=== PATIENT | male | born 1980 | race Caucasian/White ===

== ENCOUNTER 2018-04-12 18:03 | Inpatient (IN) | payer OTHER, MEDICAID ==
[~2018-04-12] VITALS: Ht 160 cm; Wt 80.5 kg
[2018-04-12] VITALS (9 sets, daily range): BP systolic 132; BP diastolic 88; PULSE 112–119; RESP 18; TEMP 99.3; O2SAT 94–100
[2018-04-12] MEDS ORDERED: DIPHTH/TETANUS/ACEL PERTUSSIS (BOOSTER) 0.5 ML VIAL/PFS IM ONE ×2 (18:11→18:22)
[2018-04-12] MEDS ORDERED: ceFAZolin 2 GM PREMIX 50 ML ONE (18:11)
[2018-04-12] MEDS ORDERED: PROPOFOL 1000 MG/100 ML INJ 100 ML ONE (18:12)
[2018-04-12 18:29] LABS: BASOPHIL # 0.1 TH/MM3 (0-0.2); BASOPHIL % 0.7 % (0.0-2.0); EOSINOPHIL % 0.3 % (0.0-4.0); HEMATOCRIT 46.2 % (39.0-51.0); HEMOGLOBIN 15.9 GM/DL (13.0-17.0); LYMPH % 38.2 % (9.0-44.0); LYMPHOCYTE # 4.3 TH/MM3 (1.0-4.8); MEAN CELL VOLUME 91.6 FL (80.0-100.0); MEAN CORPUSCULAR HEMOGLOBIN 31.5 PG (27.0-34.0); MEAN CORPUSCULAR HGB CONC 34.4 % (32.0-36.0); MEAN PLATELET VOLUME 7.5 FL (7.0-11.0); MONO % 6.7 % (0.0-8.0); MONOCYTE # 0.8 TH/MM3 (0-0.9); NEUT % 54.1 % (16.0-70.0); PLATELET COUNT 357 TH/MM3 (150-450); RED BLOOD COUNT 5.05 MIL/MM3 (4.50-5.90); RED CELL DISTRIBUTION WIDTH 12.9 % (11.6-17.2); WHITE BLOOD COUNT 11.2 TH/MM3 (4.0-11.0)
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
[2018-04-12 18:37] LABS: INTERNATIONAL NORMALIZED RATIO 1.1 RATIO; PROTHROMBIN TIME - PATIENT 11.1 SEC (9.8-11.6)
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
[2018-04-12] MEDS ORDERED: IOHEXOL 350 MG/ML 10 ML VIAL (for RAD DIAG) IVCONTRAST ONE (18:42)
[2018-04-12] MEDS ORDERED: ROCURONIUM INJ 50 MG/5 ML VIAL ONE (18:43)
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
[2018-04-12] MEDS ORDERED: SENNOSIDES 8.6 MG TAB PO PRN (19:15)
[2018-04-12] MEDS ORDERED: CHLORHEXIDINE GLUCONATE 2 % 1 PACK (2 CLOTHS) TOP PRN (19:15)
[2018-04-12] MEDS ORDERED: ACETAMINOPHEN 325 MG TAB PO PRN (19:15)
[2018-04-12] MEDS ORDERED: NURSING INFORMATION XX SCH (19:15)
[2018-04-12] MEDS ORDERED: LACTULOSE SYRUP 20 GM/30 ML CUP PO PRN (19:15)
[2018-04-12] MEDS ORDERED: BISACODYL 10 MG SUPP RECTAL PRN (19:15)
[2018-04-12] MEDS ORDERED: MAGNESIUM HYDROXIDE SUSP 30 ML CUP PO PRN (19:15)
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
[2018-04-12] MEDS: SODIUM CHLOR 0.9% 1000 ML INJ 1,000 ML IV SCH ×2 (19:39→20:52)
[2018-04-12] MEDS: PROPOFOL 1000 MG/100 ML INJ 100 ML IV PRN (20:00)
[2018-04-12] MEDS: NURSING INFORMATION SCH ×6 (20:03→21:20)
--- NOTE | 2018-04-12 20:28 | PD.OP ---
Operative Report open wound nose 1.5 cm stellate type,open wound forehead 4 cm Postoperative Diagnosis: open wound nose 1.5 cm stellate type,open wound forehead 4 cm Procedure: simple closure Surgeon: Eva Vu Dining Room Attendant Cafeteria(s): none Operation and Findings: Patient's forehead ,nose was sterilely prepped and draped.Irrigation was performed with NS.Using 3-0 nylon both wound were approximated with interrupted technique. Eva Vu MD April 12, 2018 20:28
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
[2018-04-12] MEDS: DOCUSATE SODIUM 50 MG/SENNA 8.6 MG TAB PO SCH (21:00)
[2018-04-12] MEDS ORDERED: fentaNYL 2,500 MCG/NS 250 ML IV PRN (21:00)
[2018-04-12] MEDS ORDERED: SODIUM CHLOR 0.9% 1000 ML INJ 1,000 ML IV ONE ×2 (21:00→23:30)
[2018-04-12] MEDS: FAMOTIDINE 20 MG/2 ML VIAL IV PUSH SCH (21:09)
[2018-04-12] MEDS: ceFAZolin 1,000 MG/NS 100 ML IV SCH ×2 (21:09)
[2018-04-12] MEDS ORDERED: MAGNESIUM SULFATE INJ 4 GM in SODIUM CHLORIDE 0.9% INJ 92 ML IV PRN (21:30)
[2018-04-12] MEDS ORDERED: POTASSIUM CHLORIDE 25 MEQ EFFERVESCENT TAB PO PRN ×2 (21:30)
[2018-04-12] MEDS ORDERED: DEXTROSE 50% IN WATER 50 ML SYRINGE IV PUSH PRN (21:30)
[2018-04-12] MEDS ORDERED: POTASSIUM PHOSPHATE MONOBASIC 500 MG TAB PO PRN (21:30)
[2018-04-12] MEDS ORDERED: RESP: ALBUTEROL 2.5 MG/IPRATROPIUM 0.5 MG NEB (PRN) NEB (21:30)
[2018-04-12] MEDS ORDERED: MAGNESIUM SULFATE INJ 2 GM in SODIUM CHLORIDE 0.9% INJ 96 ML IV PRN (21:30)
[2018-04-12] MEDS ORDERED: POTASSIUM CHLOR 20 MEQ PREMIX 100 ML IV PRN ×2 (21:30)
[2018-04-12] MEDS ORDERED: MAGNESIUM OXIDE 400 MG TAB PO PRN (21:30)
[2018-04-12] MEDS ORDERED: POTASSIUM PHOSPHATE MONOBASIC 500 MG TAB PO/TUBE PRN (21:30)
[2018-04-12] MEDS ORDERED: SODIUM PHOSPHATE INJ 30 MMOL in SODIUM CHLOR 0.9% 250 ML INJ 240 ML IV PRN (21:30)
[2018-04-12] MEDS ORDERED: GLUCAGON 1 MG/ML VIAL OTHER PRN (21:30)
[2018-04-12] MEDS ORDERED: POTASSIUM PHOSPHATE INJ 30 MMOL in SODIUM CHLOR 0.9% 250 ML INJ 250 ML IV PRN (21:30)
[2018-04-12] MEDS ORDERED: POTASSIUM CHLOR 40 MEQ PREMIX 100 ML IV PRN ×2 (21:30)
[2018-04-12] MEDS: RESP: ALBUTEROL 2.5 MG/IPRATROPIUM 0.5 MG NEB (SCH) NEB (21:59)
[2018-04-12] MEDS: levETIRAcetam INJ 500 MG in SODIUM CHLORIDE 0.9% INJ 100 ML IV SCH (22:22)
[2018-04-12] MEDS: MULTIVITAMIN INJ 10 ML, THIAMINE INJ 100 MG, FOLIC ACID INJ 1 MG in SODIUM CHLORID 0.9%... IV SCH (23:40)
[2018-04-13] VITALS (19 sets, daily range): BP systolic 121–168; BP diastolic 78–93; PULSE 100–122; RESP 11–26; TEMP 100–101.3; O2SAT 96–100
[2018-04-13] MEDS: CHLORHEXIDINE GLUCONATE 2 % 1 PACK (2 CLOTHS) TOP SCH (03:09)
[2018-04-13 03:31] LABS: AUTOMATED NEUTROPHIL # 8.9 TH/MM3 (1.8-7.7); BASOPHIL % 0.3 % (0.0-2.0); EOSINOPHIL % 0.1 % (0.0-4.0); HEMATOCRIT 41.5 % (39.0-51.0); HEMOGLOBIN 14.1 GM/DL (13.0-17.0); LYMPH % 13.5 % (9.0-44.0); LYMPHOCYTE # 1.5 TH/MM3 (1.0-4.8); MEAN CELL VOLUME 91.8 FL (80.0-100.0); MEAN CORPUSCULAR HEMOGLOBIN 31.3 PG (27.0-34.0); MEAN PLATELET VOLUME 7.8 FL (7.0-11.0); MONO % 5.9 % (0.0-8.0); MONOCYTE # 0.7 TH/MM3 (0-0.9); NEUT % 80.2 % (16.0-70.0); PLATELET COUNT 251 TH/MM3 (150-450); RED BLOOD COUNT 4.52 MIL/MM3 (4.50-5.90); RED CELL DISTRIBUTION WIDTH 13.1 % (11.6-17.2); WHITE BLOOD COUNT 11.1 TH/MM3 (4.0-11.0)
[2018-04-13] MEDS: RESP: ALBUTEROL 2.5 MG/IPRATROPIUM 0.5 MG NEB (SCH) NEB ×4 (03:33→19:35)
[2018-04-13 04:07] LABS: BICARBONATE 19.6 MEQ/L (21.0-32.0); CALCIUM 6.9 MG/DL (8.5-10.1); CREATININE 0.72 MG/DL (0.60-1.30); PHOSPHORUS 2.3 MG/DL (2.5-4.9)
--- NOTE | 2018-04-13 04:18 | RADRPT ---
EXAM DATE: 04/13/2018 4:13 AM EDT AGE/SEX: 89 years / Male INDICATIONS: Respiratory distress. CLINICAL DATA: This is the patient's subsequent encounter. Patient reports that signs and symptoms h ave been present for 2 days and indicates a pain score of Nonresponsive. MEDICAL/SURGICAL HISTORY: Non-responsive. Non-responsive. COMPARISON: No prior exams available for comparison. FINDINGS: Slight bilateral lung base atelectasis and/or infiltrate is seen. NG tube is present with tip in the stomach. ET tube is present with tip overlapping approximately 2 above the faith. No definite pneum othorax is seen for technique. CONCLUSION: Slight bilateral lung base atelectasis and/or infiltrate is seen. Electronically signed by: Honey Claudio MD 04/13/2018 4:16 AM EDT
[2018-04-13] MEDS: PROPOFOL 1000 MG/100 ML INJ 100 ML IV PRN (04:30)
[2018-04-13 04:46] LABS: TOTAL PROTEIN 6.4 GM/DL (6.4-8.2)
[2018-04-13 04:49] LABS: CALCIUM-PROTEIN CORRECTED 7.3 MG/DL (8.5-10.1)
[2018-04-13] MEDS: ceFAZolin 1,000 MG/NS 100 ML IV SCH ×6 (05:00→21:36)
[2018-04-13] MEDS: SODIUM CHLOR 0.9% 1000 ML INJ 1,000 ML IV SCH ×2 (05:00→05:01)
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
[2018-04-13] MEDS ORDERED: SODIUM CHLOR 0.9% 1000 ML INJ 1,000 ML IV ONE (05:15)
[2018-04-13] MEDS: INSULIN ASPART SUPPLEMENTAL SCALE SQ SCH ×4 (05:54→18:32)
[2018-04-13] MEDS: FAMOTIDINE 20 MG/2 ML VIAL IV PUSH SCH ×2 (08:36→21:37)
[2018-04-13] MEDS: levETIRAcetam INJ 500 MG in SODIUM CHLORIDE 0.9% INJ 100 ML IV SCH ×2 (08:36→21:37)
[2018-04-13] MEDS: DOCUSATE SODIUM 50 MG/SENNA 8.6 MG TAB PO SCH ×2 (08:36→21:36)
[2018-04-13] MEDS: BACITRACIN TOP OINT 15 GM TUBE TOPICAL SCH ×2 (08:36→21:37)
[2018-04-13] MEDS: CHLORHEXIDINE 0.12% (ORAL KIT) 15 ML CUP MT SCH ×2 (08:36→20:14)
[2018-04-13] MEDS ORDERED: oxyCODONE/ACETAMINOPHEN 5 MG/325 MG TAB PO PRN (10:15)
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
[2018-04-13] MEDS: MORPHINE SULFATE 4 MG/ML INJ IV PUSH PRN ×2 (16:15→22:44)
[2018-04-13] MEDS: MULTIVITAMIN INJ 10 ML, THIAMINE INJ 100 MG, FOLIC ACID INJ 1 MG in SODIUM CHLORID 0.9%... IV SCH (22:24)
[2018-04-14] VITALS (12 sets, daily range): BP systolic 141–172; BP diastolic 78–100; PULSE 94–111; RESP 20–24; TEMP 97.4–99; O2SAT 95–99
[2018-04-14] MEDS: oxyCODONE/ACETAMINOPHEN 10 MG/325 MG TAB PO PRN ×2 (02:28→20:42)
[2018-04-14 04:28] LABS: HEMOGLOBIN 13.3 GM/DL (13.0-17.0); MEAN CORPUSCULAR HEMOGLOBIN 32.3 PG (27.0-34.0); MEAN CORPUSCULAR HGB CONC 35.9 % (32.0-36.0); MEAN PLATELET VOLUME 7.8 FL (7.0-11.0); PLATELET COUNT 240 TH/MM3 (150-450); RED BLOOD COUNT 4.11 MIL/MM3 (4.50-5.90); RED CELL DISTRIBUTION WIDTH 12.5 % (11.6-17.2)
[2018-04-14] MEDS: RESP: ALBUTEROL 2.5 MG/IPRATROPIUM 0.5 MG NEB (SCH) NEB ×4 (04:41→21:02)
[2018-04-14 04:53] LABS: ALBUMIN 2.8 GM/DL (3.4-5.0); ALKALINE PHOSPHATASE 57 U/L (45-117); ALT (GPT) 43 U/L (12-78); AST (GOT) 67 U/L (15-37); BICARBONATE 22.1 MEQ/L (21.0-32.0); BLOOD UREA NITROGEN 5 MG/DL (7-18); CALCIUM 8.1 MG/DL (8.5-10.1); CHLORIDE 104 MEQ/L (98-107); CREATININE 0.57 MG/DL (0.60-1.30); GLOMERULAR FILTRATION RATE 160 ML/MIN (>89); GLUCOSE,RANDOM 120 MG/DL (74-106); SODIUM (NA) 137 MEQ/L (136-145); TOTAL BILIRUBIN ADULT 1.1 MG/DL (0.2-1.0); TOTAL PROTEIN 6.2 GM/DL (6.4-8.2)
[2018-04-14 05:08] LABS: LYMPHOCYTES 11 % (9-44); MONOCYTES 8 % (0-8); NEUTROPHIL # MANUAL DIFF 8.1 TH/MM3 (1.8-7.7); POLYS (SEG NEUTROPHILS) 81 % (16-70)
[2018-04-14] MEDS: ceFAZolin 1,000 MG/NS 100 ML IV SCH ×4 (05:16→12:43)
[2018-04-14] MEDS: CHLORHEXIDINE GLUCONATE 2 % 1 PACK (2 CLOTHS) TOP SCH (05:17)
[2018-04-14] MEDS: INSULIN ASPART SUPPLEMENTAL SCALE SQ SCH ×2 (06:00→12:43)
[2018-04-14] MEDS: MORPHINE SULFATE 4 MG/ML INJ IV PUSH PRN (06:22)
--- NOTE | 2018-04-14 06:28 | RADRPT ---
EXAM DATE: 04/14/2018 6:25 AM EDT AGE/SEX: 38 years / Male INDICATIONS: Short of breath. CLINICAL DATA: This is the patient's subsequent encounter. Patient reports that signs and symptoms h ave been present for 3 days and indicates a pain score of Nonresponsive. MEDICAL/SURGICAL HISTORY: Non-responsive. Non-responsive. COMPARISON: [facility] – [place], CHEST SINGLE AP, 04/13/2018. . FINDINGS: There is diffuse haziness to the lungs bilaterally most of the pulmonary edema. Focal consolidation i s not seen. Previously seen tubes have been removed. CONCLUSION: Probable mild pulmonary edema. Electronically signed by: Honey Claudio MD 04/14/2018 6:27 AM EDT
[2018-04-14] MEDS: BACITRACIN TOP OINT 15 GM TUBE TOPICAL SCH ×2 (09:00→20:39)
[2018-04-14] MEDS: DOCUSATE SODIUM 50 MG/SENNA 8.6 MG TAB PO SCH ×2 (09:00→20:40)
--- NOTE | 2018-04-14 09:18 | HHI.FF ---
Face to Face Verification Diagnosis: (1) Intracranial hemorrhage (2) Nose fracture (3) Facial laceration Physical Therapy Order: Evaluate and Treat, Improve ambulation, Strength and gait training Home Health Nursing Order: Medical education Signs/symptoms of disease process Medication education-adverse effect Nursing assessment with vital signs I have seen patient Arthur Samayoa on 04/14/18. My clinical findings support the need for the requested home health care services because: Ltd mobility - disease progression Limited ability to care for self High risk of falls Infection w/ risk of complications I certify that my clinical findings support that this patient is homebound because: Post-op weakness Unsteady gait/balance Unsafe to leave home unassisted Gzk-lamtqunriv-[id number] bed/chair Unable to use public transportation Fatuma Soliman April 14, 2018 09:18
[2018-04-14] MEDS: levETIRAcetam INJ 500 MG in SODIUM CHLORIDE 0.9% INJ 100 ML IV SCH (09:30)
[2018-04-14] MEDS: FAMOTIDINE 20 MG/2 ML VIAL IV PUSH SCH (09:30)
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
[2018-04-14] MEDS ORDERED: WALKER WHEELS/F1 MIS (16:36)
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
[2018-04-14] MEDS: FAMOTIDINE 20 MG TAB PO SCH (20:39)
[2018-04-14] MEDS: levETIRAcetam 500 MG TAB PO SCH (20:40)
[2018-04-14] MEDS: MULTIVITAMIN INJ 10 ML, THIAMINE INJ 100 MG, FOLIC ACID INJ 1 MG in SODIUM CHLORID 0.9%... IV SCH (22:45)
[2018-04-15] VITALS (13 sets, daily range): BP systolic 129–172; BP diastolic 67–99; PULSE 69–106; RESP 16–24; TEMP 97.6–98.8; O2SAT 93–100
[2018-04-15] MEDS: RESP: ALBUTEROL 2.5 MG/IPRATROPIUM 0.5 MG NEB (SCH) NEB ×4 (03:38→21:22)
[2018-04-15] MEDS: CHLORHEXIDINE GLUCONATE 2 % 1 PACK (2 CLOTHS) TOP SCH (04:00)
[2018-04-15 04:13] LABS: AUTOMATED NEUTROPHIL # 6.3 TH/MM3 (1.8-7.7); BASOPHIL # 0.1 TH/MM3 (0-0.2); BASOPHIL % 0.6 % (0.0-2.0); EOSINOPHIL # 0.2 TH/MM3 (0-0.4); HEMATOCRIT 38.2 % (39.0-51.0); HEMOGLOBIN 13.3 GM/DL (13.0-17.0); LYMPHOCYTE # 1.2 TH/MM3 (1.0-4.8); MEAN CELL VOLUME 90.4 FL (80.0-100.0); MEAN CORPUSCULAR HEMOGLOBIN 31.4 PG (27.0-34.0); MEAN CORPUSCULAR HGB CONC 34.8 % (32.0-36.0); MEAN PLATELET VOLUME 7.8 FL (7.0-11.0); MONO % 7.1 % (0.0-8.0); MONOCYTE # 0.6 TH/MM3 (0-0.9); NEUT % 76.3 % (16.0-70.0); PLATELET COUNT 262 TH/MM3 (150-450); RED BLOOD COUNT 4.23 MIL/MM3 (4.50-5.90); RED CELL DISTRIBUTION WIDTH 12.7 % (11.6-17.2); WHITE BLOOD COUNT 8.3 TH/MM3 (4.0-11.0)
[2018-04-15 04:22] LABS: ALBUMIN 3.1 GM/DL (3.4-5.0); ALT (GPT) 45 U/L (12-78); AST (GOT) 65 U/L (15-37); BICARBONATE 23.1 MEQ/L (21.0-32.0); BLOOD UREA NITROGEN 8 MG/DL (7-18); CALCIUM 8.2 MG/DL (8.5-10.1); CHLORIDE 103 MEQ/L (98-107); CREATININE 0.65 MG/DL (0.60-1.30); GLOMERULAR FILTRATION RATE 137 ML/MIN (>89); GLUCOSE,RANDOM 112 MG/DL (74-106); SODIUM (NA) 137 MEQ/L (136-145)
[2018-04-15 04:25] LABS: ALKALINE PHOSPHATASE 55 U/L (45-117); TOTAL BILIRUBIN ADULT 0.8 MG/DL (0.2-1.0)
--- NOTE | 2018-04-15 05:56 | RADRPT ---
EXAM DATE: 04/15/2018 5:48 AM EDT AGE/SEX: 38 years / Male INDICATIONS: Shortness of breath. CLINICAL DATA: This is the patient's subsequent encounter. Patient reports that signs and symptoms h ave been present for 4 - 6 days and indicates a pain score of Nonresponsive. MEDICAL/SURGICAL HISTORY: Non-responsive. Non-responsive. [place] [facility] [place]. . FINDINGS: Previously seen pulmonary edema has resolved. The lungs are clear without infiltrate, nodule, or mass . There is no appreciable pleural effusion for technique. Heart and mediastinum are unremarkable. CONCLUSION: No acute cardiopulmonary disease. Electronically signed by: Honey Claudio MD 04/15/2018 5:55 AM EDT
[2018-04-15] MEDS: oxyCODONE/ACETAMINOPHEN 10 MG/325 MG TAB PO PRN ×2 (06:15→12:13)
[2018-04-15] MEDS: BACITRACIN TOP OINT 15 GM TUBE TOPICAL SCH ×2 (09:00→23:29)
[2018-04-15] MEDS: levETIRAcetam 500 MG TAB PO SCH ×2 (09:42→23:21)
[2018-04-15] MEDS: FAMOTIDINE 20 MG TAB PO SCH ×2 (09:42→23:21)
[2018-04-15] MEDS: DOCUSATE SODIUM 50 MG/SENNA 8.6 MG TAB PO SCH ×2 (09:42→23:21)
[2018-04-15] MEDS ORDERED: OXYC1TAB63 PO (12:16)
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
[2018-04-15] MEDS: ACETAMINOPHEN 325 MG TAB PO PRN (23:23)
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
[2018-04-16] VITALS (10 sets, daily range): BP systolic 118–171; BP diastolic 68–97; PULSE 66–98; RESP 16–22; TEMP 97.3–97.7; O2SAT 95–99
[2018-04-16] MEDS: CHLORHEXIDINE GLUCONATE 2 % 1 PACK (2 CLOTHS) TOP SCH (04:00)
[2018-04-16] MEDS: RESP: ALBUTEROL 2.5 MG/IPRATROPIUM 0.5 MG NEB (SCH) NEB ×4 (05:16→21:20)
[2018-04-16] MEDS: levETIRAcetam 500 MG TAB PO SCH ×2 (08:39→22:10)
[2018-04-16] MEDS: FAMOTIDINE 20 MG TAB PO SCH ×2 (08:39→22:10)
[2018-04-16] MEDS: DOCUSATE SODIUM 50 MG/SENNA 8.6 MG TAB PO SCH ×2 (08:39→22:09)
[2018-04-16] MEDS: ACETAMINOPHEN 325 MG TAB PO PRN ×2 (08:44→16:41)
[2018-04-16] MEDS: BACITRACIN TOP OINT 15 GM TUBE TOPICAL SCH ×2 (08:46→22:10)
[2018-04-16] MEDS: SODIUM CHLOR 0.9% 1000 ML INJ 1,000 ML IV SCH ×2 (11:31→22:11)
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
[2018-04-16 15:21] LABS: ALBUMIN 3.2 GM/DL (3.4-5.0); ALT (GPT) 54 U/L (12-78); AST (GOT) 49 U/L (15-37); BICARBONATE 24.1 MEQ/L (21.0-32.0); BLOOD UREA NITROGEN 9 MG/DL (7-18); CALCIUM 8.7 MG/DL (8.5-10.1); CHLORIDE 104 MEQ/L (98-107); CREATININE 0.82 MG/DL (0.60-1.30); GLOMERULAR FILTRATION RATE 105 ML/MIN (>89); GLUCOSE,RANDOM 113 MG/DL (74-106); SODIUM (NA) 139 MEQ/L (136-145)
[2018-04-16 15:23] LABS: ALKALINE PHOSPHATASE 59 U/L (45-117); TOTAL BILIRUBIN ADULT 0.6 MG/DL (0.2-1.0); TOTAL PROTEIN 7.3 GM/DL (6.4-8.2)
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
[2018-04-16] MEDS: LACTULOSE SYRUP 20 GM/30 ML CUP PO SCH (16:42)
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
[2018-04-16] MEDS ORDERED: MORPHINE SULFATE 4 MG/ML INJ IV PRN (21:45)
[2018-04-16] MEDS: ACETAMINOPHEN 1000 MG/100 ML 100 ML IV PRN (22:09)
[2018-04-17 00:10] VITALS: BP 140/95; PULSE 102; RESP 18; TEMP 97.8; O2SAT 97
[2018-04-17] MEDS: CHLORHEXIDINE GLUCONATE 2 % 1 PACK (2 CLOTHS) TOP SCH (04:00)
[2018-04-17] MEDS: ACETAMINOPHEN 1000 MG/100 ML 100 ML IV PRN ×3 (04:32→23:53)
[2018-04-17 04:46] VITALS: BP 150/99; PULSE 96; RESP 20; TEMP 98.5; O2SAT 96
[2018-04-17 08:17] VITALS: BP 133/85; PULSE 84; RESP 18; TEMP 97.6; O2SAT 95
[2018-04-17] MEDS: LACTULOSE SYRUP 20 GM/30 ML CUP PO SCH (08:42)
[2018-04-17] MEDS: DOCUSATE SODIUM 50 MG/SENNA 8.6 MG TAB PO SCH ×2 (08:42→20:56)
[2018-04-17] MEDS: FAMOTIDINE 20 MG TAB PO SCH ×2 (08:43→20:56)
[2018-04-17] MEDS: SODIUM CHLOR 0.9% 1000 ML INJ 1,000 ML IV SCH ×2 (08:43→17:48)
[2018-04-17] MEDS: levETIRAcetam 500 MG TAB PO SCH (08:43)
[2018-04-17] MEDS: BACITRACIN TOP OINT 15 GM TUBE TOPICAL SCH ×2 (08:44→20:57)
[2018-04-17] MEDS ORDERED: LACTULOSE SYRUP 20 GM/30 ML CUP PO ONE (10:45)
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
[2018-04-17 12:10] VITALS: BP 145/95; PULSE 84; RESP 18; TEMP 98; O2SAT 97
[2018-04-17 16:00] VITALS: BP 142/92; PULSE 89; RESP 18; TEMP 97.5; O2SAT 98
[2018-04-17 21:05] VITALS: BP 165/90; PULSE 69; RESP 18; TEMP 97.6; O2SAT 100
[2018-04-18 00:27] VITALS: BP 151/90; PULSE 80; RESP 20; TEMP 99.1; O2SAT 96
[2018-04-18] MEDS: SODIUM CHLOR 0.9% 1000 ML INJ 1,000 ML IV SCH (03:58)
[2018-04-18] MEDS: CHLORHEXIDINE GLUCONATE 2 % 1 PACK (2 CLOTHS) TOP SCH (04:00)
[2018-04-18 04:56] VITALS: BP 147/89; PULSE 76; RESP 20; TEMP 98.5; O2SAT 98
[2018-04-18 08:00] VITALS: BP 157/96; PULSE 78; RESP 18; TEMP 98.4; O2SAT 97
[2018-04-18] MEDS: LACTULOSE SYRUP 20 GM/30 ML CUP PO SCH (08:22)
[2018-04-18] MEDS: DOCUSATE SODIUM 50 MG/SENNA 8.6 MG TAB PO SCH (08:22)
[2018-04-18] MEDS: FAMOTIDINE 20 MG TAB PO SCH (08:22)
[2018-04-18] MEDS: BACITRACIN TOP OINT 15 GM TUBE TOPICAL SCH (08:23)
[2018-04-18] MEDS: ACETAMINOPHEN 1000 MG/100 ML 100 ML IV PRN (08:34)
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
[2018-04-18 12:00] VITALS: BP 148/83; PULSE 76; RESP 18; TEMP 97.8; O2SAT 97
== END 2018-04-18 15:20 | disposition home or self-care (01) | DRG 82 ==
LOC: NEPI 18:03 → N03A 19:05 → EDBD 19:05 → N05A 04-14 12:15
PROVIDERS: ADMIT Surgery Trauma Surgery; ATTEND Surgery Trauma Surgery
PROC: 5A1935Z Respiratory Ventilation, Less than 24 Consecutive Hours (ICD-10-PCS; principal; 2018-04-12)
PROC: 0BH17EZ Insertion of Endotracheal Airway into Trachea, Via Natural or Artificial Opening (ICD-10-PCS; 2018-04-12)
PROC: 0HQ1XZZ Repair Face Skin, External Approach (ICD-10-PCS; 2018-04-12)
DX: S06.349A Traumatic hemorrhage of right cerebrum with loss of consciousness of unspecified duration, initial encounter (principal); J96.90 Respiratory failure, unspecified, unspecified whether with hypoxia or hypercapnia; S01.21XA Laceration without foreign body of nose, initial encounter; S02.2XXA Fracture of nasal bones, initial encounter for closed fracture; R40.2431 Glasgow coma scale score 3-8, in the field [EMT or ambulance]; V19.49XA Pedal cycle driver injured in collision with other motor vehicles in traffic accident, initial encounter; S01.81XA Laceration without foreign body of other part of head, initial encounter; F10.129 Alcohol abuse with intoxication, unspecified; Y90.8 Blood alcohol level of 240 mg/100 ml or more; R82.5 Elevated urine levels of drugs, medicaments and biological substances
CPT/HCPCS: 31500; 36600; 70450; 70486; 71045; 71260; 72125; 72129; 72170; 74177; 80048; 80053; 80307; 82140; 82805; 82948; 84100; 84155; 85007; 85025; 85027; 85610; 85730; 86850; 86900; 86901; 87641; 90471; 90715; 94002; 94003; 94150; 94640; 94664; 94667; 94668; 96374; 96375; 99291; G0390; G0515-GO; J0131; J0690; J1953; J2270; J3010; J3411; J7030; J7040; J7050; Q9967